=== PATIENT | female | born 1965 | race Native Hawaiian/Other Pacific Islander ===

== ENCOUNTER 2022-02-01 16:07 | Outpatient (CLI) | payer BC, SELFPAY | END 2022-02-01 16:08 | disposition home or self-care (01) | LOC: LKVREF 02-14 14:20 | PROVIDERS: PCP Family Medicine; Visit Provider Family Medicine | DX: E03.9 Hypothyroidism, unspecified (principal) | CPT/HCPCS: 84443 ==